=== PATIENT | female | born 1995 | race Caucasian/White ===

== ENCOUNTER 2022-12-25 16:16 | Emergency (ER) | payer OTHER ==
[~2022-12-25] VITALS: Ht 167.6 cm; Wt 89.8 kg
[2022-12-25 17:57] VITALS: BP 129/92
--- NOTE | 2022-12-25 18:07 | NUR ---
URINE CUP PROVIDED.
[2022-12-25 19:46] LABS: BASOPHILS % (AUTO) 0.3 % (0.0-2.0); EOSINOPHILS # (AUTO) 0.1 K/uL (0-0.4); HEMATOCRIT 41.3 % (36-48); HEMOGLOBIN 13.9 g/dL (12.0-16.0); LYMPHOCYTES # (AUTO) 2.7 K/uL (2.5-16.5); LYMPHOCYTES % (AUTO) 26.9 % (20.5-51.1); MEAN CORPUSCULAR HEMOGLOBIN 29 pg (27-31); MEAN CORPUSCULAR HGB CONC 34 g/dL (33-37); MEAN CORPUSCULAR VOLUME 85.8 fL (80-94); MONOCYTES # (AUTO) 0.7 K/uL (0.8-1.0); NEUTROPHILS # (AUTO) 6.5 K/uL (1.8-7.7); NEUTROPHILS % (AUTO) 64.8 % (42.2-75.2); PLATELET COUNT (AUTO) 293 K/uL (140-450); RED BLOOD CELL COUNT(AUTO) 4.82 MIL/uL (4.20-5.40); RED CELL DISTRIBUTION WIDTH 13.5 % (11.6-13.7)
[2022-12-25 20:17] LABS: ALBUMIN 4.1 g/dL (3.4-5.0); ANION GAP 11.5 (8-16); CARBON DIOXIDE 28.3 mmol/L (21-32); CREATININE 0.7 mg/dL (0.6-1.3); POTASSIUM 3.8 mmol/L (3.5-5.1); TOTAL BILIRUBIN 0.3 mg/dL (0.0-1.0)
--- NOTE | 2022-12-25 22:39 | NUR ---
PT TO CHAIR
--- NOTE | 2022-12-25 22:41 | NUR ---
Patient being evaluated by physician
--- NOTE | 2022-12-25 22:45 | NUR ---
Patient discharged with v/s stable. Written and verbal after care instructions given and explained. Patient verbalized understanding. Ambulatory with steady gait. All questions addressed prior to discharge. Advised to follow up with PMD.
== END 2022-12-25 22:45 | disposition home or self-care (01) ==
LOC: MED 16:16
DX: O03.9 Complete or unspecified spontaneous abortion without complication (principal); Z98.890 Other specified postprocedural states; Z3A.01 Less than 8 weeks gestation of pregnancy
CPT/HCPCS: 36415; 76817; 80053; 81025; 84702; 85025; 86900; 86901; 99284; Q0092